=== PATIENT | male | born 1985 | race Caucasian/White ===

== ENCOUNTER 2021-10-05 07:36 | Emergency (ER) | payer MEDICAID, SELFPAY ==
[2021-10-05] VITALS (15 sets, daily range): BP systolic 125–145; BP diastolic 72–102; PULSE 64–104; RESP 18–24; TEMP 36.6; O2SAT 99–100
--- NOTE | ~2021-10-05 | CT_ITS ---
EXAMINATION: CT brain wo con DATE: 10/05/2021 08:22 INDICATION: Head injury. TECHNIQUE: Computed tomography (CT) of the head was performed without intravenous contrast. The mA wa s adjusted according to patient size. Iterative reconstruction technique was employed. The dose-lengt h product was 605.33 mGy-cm. COMPARISON: None FINDINGS: There is no intracranial hemorrhage, acute infarction, or abnormal intracranial mass lesion . The ventricles are normal in size. There is mucosal thickening in the paranasal sinuses. The mastoi d air cells are normal. The orbits are normal. IMPRESSION: 1. Normal brain. Reviewed, dictated and finalized at location A. IMPRESSION: 1. Normal brain.
--- NOTE | ~2021-10-05 | CT_ITS ---
EXAMINATION: CT chest abdomen pelvis w con DATE: 10/05/2021 08:23 INDICATION: Chest and abdominal injury. Right chest and abdominal pain. TECHNIQUE: Computed tomography (CT) of the chest, abdomen, and pelvis was performed with 100 mL Omnip aque 350 intravenous contrast. Automated exposure control and iterative reconstruction technique were employed. The dose-length product was 942.29 mGy-cm. COMPARISON: None FINDINGS: CHEST CT: The lungs demonstrate mild atelectasis. No pleural effusion. Pneumomediastinum is noted. There is sof t tissue gas in the neck, left worse than right. There is a 7 mm nodule in left thyroid lobe, likely not clinically significant. The heart size is normal. No pericardial effusion. There is a burst fract ure of superior endplate of T12 with 1/5 loss of height and retropulsion of bone 2 mm into central sp inal canal. ABDOMEN/PELVIS CT: The liver, gallbladder, spleen, pancreas, adrenal glands, and right kidney are normal. There is a 10 mm cyst in left kidney. There are no dilated loops of bowel. The appendix is normal. There is promine nt fat in the inguinal canals that may be hernias. There are no pathologically enlarged lymph nodes. There is no free intraperitoneal fluid. The bones are unremarkable. IMPRESSION: 1. Pneumomediastinum. 2. T12 burst fracture. Reviewed, dictated and finalized at location A.
--- NOTE | ~2021-10-05 | CT_ITS ---
EXAMINATION: CT cervical spine wo con DATE: 10/05/2021 08:22 INDICATION: Left neck injury. TECHNIQUE: Computed tomography (CT) of the cervical spine was performed without intravenous contrast. Automated exposure control and iterative reconstruction technique were employed. The dose-length pro duct was 460.85 mGy-cm. COMPARISON: None FINDINGS: There is 3 degrees dextrocurvature of cervical spine. Vertebral body heights and interverte bral disc heights are normal. At C7-T1, there is mild bilateral facet joint osteoarthritis. No neural foraminal stenosis or central canal stenosis. There is soft tissue gas in the neck predominantly on the left. There is soft tissue gas in the retropharyngeal region and in the superior mediastinum. The re are no pathologically enlarged lymph nodes. There is a small volume of hematoma around left thyroi d lobe. IMPRESSION: 1. No fracture. 2. Small volume of hematoma around left thyroid lobe. 3. Soft tissue gas including gas in the retropharyngeal region and superior mediastinum. Reviewed, dictated and finalized at location A. IMPRESSION: 1. No fracture. 2. Small volume of hematoma around left thyroid lobe. 3. Soft tissue gas including gas in the retropharyngeal region and superior med iastinum.
--- NOTE | 2021-10-05 07:53 | ECG_ITS ---
Measurements Intervals Holman Rate: 87 P: 68 MA: 165 QRS: 89 QRSD: 95 T: 65 QT: 379 QTc: 456 Interpretive Statements SINUS RHYTHM WITH SINUS ARRHYTHMIA OTHERWISE NORMAL EKG NO PREVIOUS ECG AVAILABLE FOR COMPARISON Electronically Signed On 10-05-2021 18:51:44 CDT by Ameena Cage M.D.
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
[2021-10-05] MEDS: HYDROmorphone HCL INJ (*CRX) 2 MG/ML VIAL 0.5 MG IV PUSH ×2 (08:22→09:18)
[2021-10-05] MEDS: MORPHINE SULFATE (*CRX) 2 MG/ML INJ IV PUSH (08:24)
[2021-10-05] MEDS: ONDANSETRON INJ 4 MG/2 ML VIAL IV PUSH (08:25)
[2021-10-05 08:27] LABS: Basophils Absolute Auto 0.02 K/mm3 (0.00-0.10); Basophils Percent Auto 0.2 % (0.0-1.0); Eosinophils Absolute Auto 0.12 K/mm3 (0.02-0.50); Eosinophils Percent Auto 1.4 % (1.0-6.0); Immature Granulocyte Absolute 0.06 K/mm3 (0.00-0.00); Immature Granulocyte Percent A 0.7 % (0.0-0.0); Lymphocytes Absolute Auto 1.84 K/mm3 (1.10-4.50); Mean Corpuscular HGB Conc 34.1 g/dL (32.0-36.0); Mean Corpuscular Hemoglobin 30.3 pg (27.0-31.0); Mean Corpuscular Volume 88.7 fL (78.0-102.0); Mean Platelet Volume 10.1 fl (8.7-11.0); Monocytes Absolute Auto 0.68 K/mm3 (0.10-0.90); Monocytes Percent Auto 8.1 % (2.0-11.0); Neutrophils Absolute Auto 5.6 K/mm3 (1.7-7.2); Neutrophils Percent Auto 67.6 % (50.0-70.0); Platelet Count Result 229 K/mm3 (150-420); Red Blood Count 4.62 M/mm3 (4.70-6.10); Red Cell Distribution Width 12.9 % (11.6-14.4); White Blood Count 8.4 K/mm3 (4.8-10.8)
[2021-10-05] MEDS: LACTATED RINGERS 1,000 ML 999 ML IV CONT (08:32)
[2021-10-05 08:42] LABS: Alanine Aminotransferase 22 U/L (16-63); Albumin Level 3.6 g/dL (3.4-5.0); Alkaline Phosphatase 38 U/L (46-116); Anion Gap 12 mmol/L (8-16); Aspartate Amino Transferase 26 U/L (15-37); Bilirubin,Total 0.6 mg/dL (0.00-1.00); Blood Urea Nitrogen 19 mg/dL (7-18); Calcium 8.6 mg/dL (8.5-10.1); Carbon Dioxide 23 mmol/L (21-32); Chloride 103 mmol/L (98-108); Estimated CRCL calculation 90 ml/min; Estimated Glomerular Filt Rate > 60; Glucose 118 mg/dL (70-99); Osmolality Calculated 289 mOsm/kg (285-295); Potassium 3.6 mmol/L (3.5-5.1); Sodium 138 mmol/L (136-145); Total Protein 6.5 g/dL (6.4-8.2)
[2021-10-05] MEDS: LACTATED RINGERS 1,000 ML 150 ML IV CONT (09:17)
--- NOTE | 2021-10-05 09:39 | PC.NURSE ---
0925 LR infusing at 150/hr for transfer to [facility]
== END 2021-10-05 09:25 | disposition short-term general hospital (02) ==
PROVIDERS: Emergency Provider Internal Medicine Critical Care Medicine
DX: S11.91XA Laceration without foreign body of unspecified part of neck, initial encounter (principal); J98.2 Interstitial emphysema; S22.081A Stable burst fracture of T11-T12 vertebra, initial encounter for closed fracture; W55.22XA Struck by cow, initial encounter
CPT/HCPCS: 36415; 70450; 71260; 72125; 74177; 80053; 85025; 93005; 96361; 96374; 96375; 96376; 99285; J1170; J2270; J2405; J7030; J7120; L0150; Q9967